=== PATIENT | female | born 1965 | race Caucasian/White ===

== ENCOUNTER 2018-12-12 12:58 | Emergency (ER) | payer MEDICAID, OTHER ==
[~2018-12-12] VITALS: Ht 167.6 cm; Wt 90.7 kg
[2018-12-12 13:01] VITALS: BP 167/92
[2018-12-12] MEDS ORDERED: HYDROCODONE/APAP 5/325MG 1 EACH TABLET ONE (13:24)
[2018-12-12] MEDS ORDERED: HYDROCODONE/APAP 5/325MG 1 EACH TABLET PO ONE (13:30)
== END 2018-12-12 13:34 | disposition home or self-care (01) ==
LOC: ER 13:10
DX: M54.5 Low back pain (principal); W22.8XXA Striking against or struck by other objects, initial encounter; Y93.89 Activity, other specified; Y92.89 Other specified places as the place of occurrence of the external cause; Y99.8 Other external cause status

== ENCOUNTER 2019-06-25 11:11 | Emergency (ER) | payer MEDICAID ==
[~2019-06-25] VITALS: Ht 170.2 cm; Wt 90.7 kg
[2019-06-25] MEDS ORDERED: ACETAMINOPHEN 325 MG TABLET PO ONE (11:30)
[2019-06-25] MEDS ORDERED: ACETAMINOPHEN 325 MG TABLET ONE (11:40)
--- NOTE | 2019-06-25 11:47 | NUR ---
patient came in to the ER c/o nosebleed since this morning, no bleeding noted at this time, on room air, breathing evenly and unlabored. connetced to the monitor and pulse ox. kept comfortable, will continue to monitor accordingly.
--- NOTE | 2019-06-25 11:55 | NUR ---
wheeled patient via wheelchair for x-ray
--- NOTE | 2019-06-25 12:04 | NUR ---
patient came back from x-ray
[2019-06-25 12:51] VITALS: BP 145/89
--- NOTE | 2019-06-25 12:51 | NUR ---
Patient discharged to home in stable condition. Written and verbal after care instructions given. Patient verbalizes understanding of instruction.
== END 2019-06-25 12:51 | disposition home or self-care (01) ==
LOC: ER 11:11
DX: S00.33XA Contusion of nose, initial encounter (principal); R04.0 Epistaxis; W22.8XXA Striking against or struck by other objects, initial encounter; Y93.89 Activity, other specified; Y92.89 Other specified places as the place of occurrence of the external cause; Y99.8 Other external cause status
CPT/HCPCS: 70150-TC

== ENCOUNTER 2019-07-19 13:28 | Emergency (ER) | payer MEDICAID ==
[~2019-07-19] VITALS: Ht 165.1 cm; Wt 90.7 kg
--- NOTE | 2019-07-19 14:25 | NUR ---
PT CAME INTO THE ED C/O LACERATION TO WEBBING BETWEEN R 4TH & 5TH DIGIT. PT AAOX4, VSS, NO ACUTE DISTRESS NOTED. PT CONNECTED TO THE MONITOR AND POX
[2019-07-19] MEDS ORDERED: LIDOCAINE HCL/MPF 1% 30 ML VIAL IJ ONE (15:06)
[2019-07-19] MEDS ORDERED: LIDOCAINE MPF 1%-EPI 1:200,000 30 ML VIAL IJ ONE (15:16)
[2019-07-19] MEDS ORDERED: TDAP [DIPH/PERTUSSIS/TET] 0.5 ML VIAL IM ONE ×2 (15:17→15:30)
[2019-07-19] MEDS ORDERED: LIDOCAINE HCL/PF 1% 30 ML VIAL TP ONE (15:30)
[2019-07-19 16:05] VITALS: BP 121/84
--- NOTE | 2019-07-19 16:05 | NUR ---
Patient discharged to home in stable condition. Written and verbal after care instructions given. Patient verbalizes understanding of instruction.
== END 2019-07-19 16:05 | disposition home or self-care (01) ==
LOC: ER 13:31
DX: S61.216A Laceration without foreign body of right little finger without damage to nail, initial encounter (principal); W25.XXXA Contact with sharp glass, initial encounter; Y93.G1 Activity, food preparation and clean up; Y92.89 Other specified places as the place of occurrence of the external cause; Y99.8 Other external cause status
CPT/HCPCS: 12001; 90471; 90715; 99283; J3490 ×3

== ENCOUNTER 2019-08-03 10:00 | Emergency (ER) | payer MEDICAID ==
[~2019-08-03] VITALS: Ht 170.2 cm; Wt 90.7 kg
[2019-08-03 10:02] VITALS: BP 161/99
--- NOTE | 2019-08-03 10:14 | NUR ---
SUTURE REMOVAL DONE. 4 STITCHES REMOVED. PT TOLERATED PROCEDURE WELL.
== END 2019-08-03 10:16 | disposition home or self-care (01) ==
LOC: ER 10:02
DX: S61.216D Laceration without foreign body of right little finger without damage to nail, subsequent encounter (principal); X58.XXXD Exposure to other specified factors, subsequent encounter

== ENCOUNTER 2019-10-27 13:00 | Emergency (ER) | payer MEDICAID ==
[~2019-10-27] VITALS: Ht 170.2 cm; Wt 92.1 kg
--- NOTE | 2019-10-27 13:29 | NUR ---
PT REC'D TO ER C/O THYROID PAIN IV STARTED 20G LEFT AC SENT TO LAB EKG DONE VSS
[2019-10-27 13:58] LABS: BASOPHILS % (AUTO) 0.5 % (0.0-2.0); EOSINOPHILS % (AUTO) 0.7 % (0.0-6.0); HEMATOCRIT 42 % (33-45); HEMOGLOBIN 13.5 g/dL (11.5-14.8); LYMPHOCYTES # (AUTO) 1.9 /CMM (0.8-4.8); MEAN CORPUSCULAR HGB CONC 33 g/dl (31.0-36.0); MEAN CORPUSCULAR VOLUME 83 fL (82-100); MONOCYTES # (AUTO) 0.7 /CMM (0.1-1.30); MONOCYTES % (AUTO) 7.2 % (2.0-12.0); NEUTROPHILS # (AUTO) 7.1 /CMM (1.8-8.9); NEUTROPHILS % (AUTO) 72.6 % (43.0-81.0); PLATELET COUNT (AUTO) 301 /CMM (150-450); RED BLOOD CELL COUNT(AUTO) 5.02 MIL/uL (4.0-5.2); WHITE BLOOD COUNT (AUTO) 9.7 K/uL (4.3-11.0)
[2019-10-27 14:08] LABS: CALCIUM, SERUM 9.2 mg/dL (8.5-10.1); CARBON DIOXIDE 30 mmol/L (21-32); CHLORIDE 105 mmol/L (98-107); CREATININE 0.9 mg/dL (0.6-1.3); GLUCOSE 93 mg/dL (74-106); POTASSIUM 3.2 mmol/L (3.5-5.1); SODIUM SERUM 140 mmol/L (136-145); UREA NITROGEN, BLOOD 15 mg/dL (7-18)
[2019-10-27 16:31] LABS: THYROID STIMULATING HORMONE 2.703 uIU/mL (0.358-3.74)
--- NOTE | 2019-10-27 16:54 | NUR ---
PT. VERBALIZED UNDERSTANDING OF AFTERCARE INSTRUCTIONS.IV removed. Catheter intact and site benign. Pressure and 4x4 applied to site. No bleeding noted.Patient discharged to home in stable condition. Written and verbal after care instructions given. Patient verbalizes understanding of instruction.
[2019-10-27 16:56] VITALS: BP 161/87
== END 2019-10-27 16:57 | disposition home or self-care (01) ==
LOC: ER 13:01
DX: R07.89 Other chest pain (principal); R00.2 Palpitations
CPT/HCPCS: 36415; 71045-TC; 80048-TC; 84439-TC; 84443-TC; 84484-TC; 85025-TC

== ENCOUNTER 2021-10-16 12:43 | Emergency (ER) | payer MEDICAID ==
[~2021-10-16] VITALS: Ht 170.2 cm; Wt 104.3 kg
--- NOTE | 2021-10-16 13:11 | NUR ---
TO ER BED 3. BIBS C/O LOWER BACK PAIN AND GOING TO HIP SURGERY IN 5 DAYS. PT HAS HISTORY OF SCIATICA.
--- NOTE | 2021-10-16 13:24 | NUR ---
URINE COLLECTED AND SENT
[2021-10-16] MEDS ORDERED: CYCLOBENZAPRINE 10 MG TABLET ONE (14:22)
[2021-10-16] MEDS ORDERED: KETOROLAC TROMETHAMINE INJ 30 MG/ML VIAL ONE (14:22)
[2021-10-16] MEDS ORDERED: KETOROLAC TROMETHAMINE INJ 30 MG/ML VIAL IM ONE (14:30)
[2021-10-16] MEDS ORDERED: CYCLOBENZAPRINE 10 MG TABLET PO ONE (14:30)
--- NOTE | 2021-10-16 14:31 | NUR ---
PT RETURNED FROM CT VIA [facility]
[2021-10-16 14:54] LABS: CALCIUM, SERUM 9.2 mg/dL (8.5-10.1); CREATININE 0.8 mg/dL (0.6-1.3); POTASSIUM 3.6 mmol/L (3.5-5.1)
[2021-10-16 15:34] LABS: BILIRUBIN,URINE NEGATIVE (NEGATIVE); COLOR,URINE YELLOW (YELLOW); LEUKOCYTE ESTERASE ,URINE NEGATIVE (NEGATIVE); NITRITE, URINE NEGATIVE (NEGATIVE); PROTEIN,URINE NEGATIVE (NEGATIVE); UGLUCOSE NEGATIVE (NEGATIVE); UROBILINOGEN,URINE 0.2 EU/dL (0.2)
[2021-10-16] MEDS ORDERED: CYCL5TAB PO (16:17)
[2021-10-16 16:28] VITALS: BP 146/80
--- NOTE | 2021-10-16 16:28 | NUR ---
Patient discharged to home in stable condition. Written and verbal after care instructions given. Patient verbalizes understanding of instruction.
== END 2021-10-16 16:29 | disposition home or self-care (01) ==
LOC: ER 12:46
DX: M54.42 Lumbago with sciatica, left side (principal); I10 Essential (primary) hypertension; Z79.899 Other long term (current) drug therapy
CPT/HCPCS: 36415; 74176; 80048; 81003; 96372; 99284; J1885

== ENCOUNTER 2023-04-15 09:08 | Emergency (ER) | payer MEDICARE, OTHER ==
[~2023-04-15] VITALS: Ht 170.2 cm; Wt 104.3 kg
[~2023-04-15 09:08] MED LIST: CYCL5TAB PO
[2023-04-15] MEDS ORDERED: HYDR453.3 TP ×2 (09:33→09:40)
[2023-04-15] MEDS ORDERED: CLOT15CR27 TP ×2 (09:33→09:40)
[2023-04-15 09:49] VITALS: BP 151/88; TEMP 98.2; O2SAT 98
== END 2023-04-15 09:49 | disposition home or self-care (01) ==
LOC: ER 09:08
DX: L30.4 Erythema intertrigo (principal); B37.2 Candidiasis of skin and nail; I10 Essential (primary) hypertension

== ENCOUNTER 2023-04-21 10:51 | Emergency (ER) | payer MEDICARE, OTHER ==
[~2023-04-21] VITALS: Ht 170.2 cm; Wt 104.3 kg
[~2023-04-21 10:51] MED LIST changes: +CLOT15CR27 TP; +HYDR453.3 TP
[2023-04-21 10:57] VITALS: BP 158/94; TEMP 98; O2SAT 98
[2023-04-21] MEDS ORDERED: ACYC-108 PO (11:34)
[2023-04-22] MEDS ORDERED: CLOT15CR27 TP (06:59)
[2023-04-22] MEDS ORDERED: DIPH25CA83 PO (06:59)
== END 2023-04-21 11:44 | disposition home or self-care (01) ==
LOC: ER 10:51
DX: B02.9 Zoster without complications (principal); I10 Essential (primary) hypertension

== ENCOUNTER → 2023-04-22 | Emergency (ER) | payer MEDICARE, OTHER ==
[~2023-04-22] VITALS: Ht 170.2 cm; Wt 104.3 kg
[~2023-04-22] MED LIST changes: +ACYC-108 PO; +DIPH25CA83 PO; +hydrOXYzine 10 MG TABLET PO ONE
[2023-04-22 06:38] VITALS: BP 134/81; TEMP 98.2; O2SAT 98
== END | disposition home or self-care (01) ==
LOC: ER 06:17
DX: B02.9 Zoster without complications (principal); B37.2 Candidiasis of skin and nail; I10 Essential (primary) hypertension

== ENCOUNTER 2023-06-11 15:03 | Emergency (ER) | payer MEDICARE, OTHER ==
[~2023-06-11] VITALS: Ht 167.6 cm; Wt 85.3 kg
[~2023-06-11 15:03] MED LIST changes: -hydrOXYzine 10 MG TABLET PO ONE
[2023-06-11 16:35] VITALS: BP 150/81; TEMP 98.3; O2SAT 100
== END 2023-06-11 16:35 | disposition home or self-care (01) ==
LOC: ER 15:17
DX: F41.9 Anxiety disorder, unspecified (principal); I10 Essential (primary) hypertension; Z79.899 Other long term (current) drug therapy

== ENCOUNTER → 2024-01-24 | Emergency (ER) | payer MEDICARE, OTHER ==
[~2024-01-24] VITALS: Ht 170.2 cm; Wt 95.3 kg
[~2024-01-24] MED LIST changes: +CT SWABBABLE VALVE TRANS SET 1 EA INFUS.SET MC ONE; +HYDR-4209 PO; +IOHEXOL-350 100 ML VIAL IV ONE; +IV NS 0.9% 250 ML IV ONE
[2024-01-24 16:04] LABS: BASOPHILS # (AUTO) 0.1 K/uL (0.0-0.2); BASOPHILS % (AUTO) 0.8 % (0.0-2.0); EOSINOPHILS # (AUTO) 0.1 K/uL (0.0-0.7); EOSINOPHILS % (AUTO) 1.2 % (0.0-6.0); HEMATOCRIT 42 % (33-45); HEMOGLOBIN 13.8 g/dL (11.5-14.8); LYMPHOCYTES # (AUTO) 1.8 K/uL (0.8-4.8); LYMPHOCYTES % (AUTO) 20.7 % (20.0-44.0); MEAN CORPUSCULAR HEMOGLOBIN 27 PG (26.0-33.0); MEAN CORPUSCULAR HGB CONC 33 g/dl (31.0-36.0); MEAN CORPUSCULAR VOLUME 81 fL (82-100); MONOCYTES # (AUTO) 0.5 K/uL (0.1-1.30); MONOCYTES % (AUTO) 6.1 % (2.0-12.0); NEUTROPHILS # (AUTO) 6.3 K/uL (1.8-8.9); NEUTROPHILS % (AUTO) 71.2 % (43.0-81.0); PLATELET COUNT (AUTO) 310 K/uL (150-450); RED BLOOD CELL COUNT(AUTO) 5.16 MIL/uL (4.0-5.2); RED CELL DISTRIBUTION WIDTH 13.6 % (11.5-15.0); WHITE BLOOD COUNT (AUTO) 8.8 K/uL (4.3-11.0)
[2024-01-24 16:12] LABS: CALCIUM, SERUM 9.5 mg/dL (8.5-10.1); CARBON DIOXIDE 28 mmol/L (21-32); CHLORIDE 103 mmol/L (98-107); CREATININE 0.8 mg/dL (0.6-1.3); GLUCOSE 94 mg/dL (74-106); POTASSIUM 3.8 mmol/L (3.5-5.1); SODIUM SERUM 137 mmol/L (136-145); UREA NITROGEN, BLOOD 15 mg/dL (7-18)
[2024-01-24 16:25] LABS: NT-PRO BNP 91 pg/mL (0-125)
[2024-01-24 16:59] LABS: THYROID STIMULATING HORMONE 3.54 uIU/mL (0.358-3.74)
[2024-01-24 17:49] VITALS: BP 145/80; TEMP 97.9; O2SAT 100
== END | disposition home or self-care (01) ==
LOC: ER 14:57
DX: S86.912A Strain of unspecified muscle(s) and tendon(s) at lower leg level, left leg, initial encounter (principal); S86.911A Strain of unspecified muscle(s) and tendon(s) at lower leg level, right leg, initial encounter; R22.1 Localized swelling, mass and lump, neck; R51.9 Headache, unspecified; E05.90 Thyrotoxicosis, unspecified without thyrotoxic crisis or storm; I10 Essential (primary) hypertension; R09.89 Other specified symptoms and signs involving the circulatory and respiratory systems; X58.XXXA Exposure to other specified factors, initial encounter; Y93.89 Activity, other specified; Y92.89 Other specified places as the place of occurrence of the external cause; Y99.8 Other external cause status
CPT/HCPCS: 99285; 70498; 93970; 71045; 93005; 70496; 85025; 80048; 85378; 36415; 84439; 84443; 84484; 83880; J7050; Q9967

== ENCOUNTER 2024-05-16 05:29 | Emergency (ER) | payer MEDICARE, OTHER ==
[~2024-05-16] VITALS: Ht 170.2 cm; Wt 99.8 kg
[~2024-05-16 05:29] MED LIST changes: -CT SWABBABLE VALVE TRANS SET 1 EA INFUS.SET MC ONE; -IOHEXOL-350 100 ML VIAL IV ONE; -IV NS 0.9% 250 ML IV ONE
[2024-05-16 06:49] LABS: BASOPHILS # (AUTO) 0.1 K/uL (0.0-0.2); BASOPHILS % (AUTO) 0.8 % (0.0-2.0); EOSINOPHILS # (AUTO) 0.1 K/uL (0.0-0.7); EOSINOPHILS % (AUTO) 1.6 % (0.0-6.0); HEMATOCRIT 44 % (33-45); HEMOGLOBIN 14.1 g/dL (11.5-14.8); LYMPHOCYTES # (AUTO) 1.6 K/uL (0.8-4.8); LYMPHOCYTES % (AUTO) 25.1 % (20.0-44.0); MEAN CORPUSCULAR HEMOGLOBIN 27 PG (26.0-33.0); MEAN CORPUSCULAR HGB CONC 33 g/dl (31.0-36.0); MEAN CORPUSCULAR VOLUME 82 fL (82-100); MONOCYTES # (AUTO) 0.4 K/uL (0.1-1.30); MONOCYTES % (AUTO) 6.7 % (2.0-12.0); NEUTROPHILS # (AUTO) 4.3 K/uL (1.8-8.9); NEUTROPHILS % (AUTO) 65.8 % (43.0-81.0); PLATELET COUNT (AUTO) 307 K/uL (150-450); RED BLOOD CELL COUNT(AUTO) 5.31 MIL/uL (4.0-5.2); RED CELL DISTRIBUTION WIDTH 13.7 % (11.5-15.0); WHITE BLOOD COUNT (AUTO) 6.5 K/uL (4.3-11.0)
[2024-05-16 06:54] LABS: CALCIUM, SERUM 9.5 mg/dL (8.5-10.1); CREATININE 0.6 mg/dL (0.6-1.3); POTASSIUM 3.9 mmol/L (3.5-5.1)
[2024-05-16 07:00] LABS: ALBUMIN 3.7 g/dL (3.4-5.0); BILIRUBIN,DIRECT 0.1 mg/dL (0.0-0.2); BILIRUBIN,TOTAL 0.8 mg/dL (0.2-1.0); TOTAL PROTEIN, SERUM 7.7 g/dL (6.4-8.2)
[2024-05-16 07:02] LABS: INR 1.04 (0.91-1.10); PARTIAL THROMBOPLASTIN TIME 30.9 SEC (24.3-34.3)
[2024-05-16 08:26] LABS: COLOR,URINE STRAW (YELLOW)
[2024-05-16 08:28] LABS: APPEARANCE,URINE CLEAR (CLEAR); BILIRUBIN,URINE NEGATIVE (NEGATIVE); BLOOD, URINE 3+ Ery/uL (NEGATIVE); KETONES,URINE NEGATIVE (NEGATIVE); LEUKOCYTE ESTERASE ,URINE NEGATIVE (NEGATIVE); NITRITE, URINE NEGATIVE (NEGATIVE); PROTEIN,URINE NEGATIVE (NEGATIVE); UGLUCOSE NEGATIVE (NEGATIVE); UROBILINOGEN,URINE 0.2 EU/dL (0.2)
[2024-05-16 08:32] LABS: OCCULT BLOOD STOOL NEGATIVE (NEGATIVE)
[2024-05-16 08:34] LABS: ADD URINE CULTURE NO; BACTERIA,URINE Rare /HPF (None Seen); SQUAMOUS EPITHELIAL CELL,UR Rare /HPF (None Seen); WBC,URINE 0-2 /HPF (0-3)
[2024-05-16 09:00] VITALS: BP 145/88; TEMP 98; O2SAT 99
== END 2024-05-16 09:30 | disposition home or self-care (01) ==
LOC: ER 05:38
DX: N93.9 Abnormal uterine and vaginal bleeding, unspecified (principal); I10 Essential (primary) hypertension; Z78.0 Asymptomatic menopausal state; Z90.721 Acquired absence of ovaries, unilateral
CPT/HCPCS: 36415; 76856-TC; 80048-TC; 80076-TC; 81001; 82272-TC; 85025-TC; 85730-TC; 86850-TC

== ENCOUNTER 2024-11-16 09:50 | Emergency (ER) | payer MEDICARE, OTHER ==
[~2024-11-16] VITALS: Ht 170.2 cm; Wt 99.8 kg
[2024-11-16 10:01] VITALS: TEMP 98
[2024-11-16 10:28] LABS: BASOPHILS # (AUTO) 0.1 K/uL (0.0-0.2); BASOPHILS % (AUTO) 1.1 % (0.0-2.0); EOSINOPHILS # (AUTO) 0.1 K/uL (0.0-0.7); HEMATOCRIT 43 % (33-45); HEMOGLOBIN 14.2 g/dL (11.5-14.8); LYMPHOCYTES # (AUTO) 1.6 K/uL (0.8-4.8); LYMPHOCYTES % (AUTO) 22.4 % (20.0-44.0); MEAN CORPUSCULAR HEMOGLOBIN 27 PG (26.0-33.0); MEAN CORPUSCULAR HGB CONC 33 g/dl (31.0-36.0); MEAN CORPUSCULAR VOLUME 81 fL (82-100); MONOCYTES # (AUTO) 0.5 K/uL (0.1-1.30); MONOCYTES % (AUTO) 6.6 % (2.0-12.0); NEUTROPHILS % (AUTO) 68.9 % (43.0-81.0); PLATELET COUNT (AUTO) 301 K/uL (150-450); RED BLOOD CELL COUNT(AUTO) 5.27 MIL/uL (4.0-5.2); RED CELL DISTRIBUTION WIDTH 13.9 % (11.5-15.0); WHITE BLOOD COUNT (AUTO) 7.2 K/uL (4.3-11.0)
[2024-11-16 10:37] LABS: CALCIUM, SERUM 9.5 mg/dL (8.5-10.1); CREATININE 0.7 mg/dL (0.6-1.3); POTASSIUM 3.7 mmol/L (3.5-5.1)
[2024-11-16] MEDS ORDERED: KETOROLAC TROMETHAMINE 15 MG/ML VIAL ONE (11:41)
[2024-11-16] MEDS ORDERED: LIDOCAINE 5% (PATCH) 1 EA PATCH TP ONE (11:41)
[2024-11-16] MEDS: KETOROLAC TROMETHAMINE 15 MG/ML VIAL IM ONE (11:45)
[2024-11-16] MEDS: LIDOCAINE 5% (PATCH) 1 EA PATCH TP STA (11:46)
[2024-11-16] MEDS ORDERED: CYCL5TAB PO (12:07)
[2024-11-16] MEDS ORDERED: METH4TAB17 PO (12:07)
[2024-11-16] MEDS ORDERED: IBUP-1955 PO (12:07)
[2024-11-16] MEDS ORDERED: LIDO30AD10 TP (12:07)
[2024-11-16 12:48] VITALS: BP 145/85; O2SAT 99
== END 2024-11-16 12:25 | disposition home or self-care (01) ==
LOC: ER 09:58
DX: M54.41 Lumbago with sciatica, right side (principal); M54.42 Lumbago with sciatica, left side; F41.9 Anxiety disorder, unspecified; I10 Essential (primary) hypertension; R00.2 Palpitations; Z86.59 Personal history of other mental and behavioral disorders
CPT/HCPCS: 99285; 71045; 96372; 93005; 85025; 80048; 36415; 84484; J1885